=== PATIENT | male | born 1995 | race Caucasian/White ===

== ENCOUNTER 2018-06-04 13:18 | Emergency (ER) | payer OTHER ==
[2018-06-04 13:32] VITALS: BP 144/88
--- NOTE | 2018-06-04 14:23 | EDPHY ---
General Time Seen by Provider: 06/04/18 14:21 Narrative: CLINICAL IMPRESSION: [ ] ASSESSMENT/PLAN: [ ] DIFFERENTIAL DX: [ ] ED PROCEDURES: [ See lab and/or imaging results below] [ ] ED COURSE: CHIEF COMPLAINT: [Fecal impaction ] HPI: [ ] PAST MEDICAL HISTORY: [ ] [See triage summary and nurse notes for addition applicable history ] Pertinent Past Surgical History: [ ] Family History: [ ] Social History: [ ] REVIEW OF SYSTEMS: A full 10 point review of systems was negative except for those mentioned in HPI. PHYSICAL EXAM: General Appearance: [Alert, oriented, appropriate, cooperative, NAD, well hydrated, non-toxic appearing, VSS, no hypoxia.] HEENT: [TMs are clear bilaterally no perforation or FB, no injection, no evidence of serous or mucopurulent otitis. Oropharynx clear is no erythema or exudates, no tonsillar hypertrophy or asymmetry. Dentition without abnormality. ] Eyes: [PERRLA, no acute vision change, nystagmus, swelling, discharge, pain or photosensitivity. Conjunctiva pink, no pallor or injection] Neck: [Supple, nontender, no lymphadenopathy, no midline pain, FROM, no meningismus.] Respiratory: [There are no retractions, lungs are clear to auscultation.] Cardiac: [Regular rate and rhythm, no murmurs or gallops.] Gastrointestinal: [Abdomen is soft, nontender, bowel sounds normal, no masses/ hernia, no rigidity, guarding or focal peritoneal findings.] Skin: [Warm, dry, no rashes, no nodules on palpation.] MEDICAL DECISION MAKING: Patient was seen independently. Secondary supervising physician at time of evaluation was: [ Dr. Luis]. Diagnosis: [ ]. New, requires workup Summary: [See Assessment and Plan for summary of ED visit ] Clinical lab tests: [ ordered / reviewed]. Independent visualization of images, tracing, or specimens: [ Yes / No]. Decision to obtain medical records or history from someone other than the patient: [ ] Review / Summarize previous medical records: [ ] Discussed patient with another provider: [ ] Patient Progress: [ ]. - History Smoking Status: Never smoked - Objective Vital Signs: Initial Vital Signs Temperature (C) 36.7 C 06/04/18 13:29 Heart Rate 80 06/04/18 13:29 Respiratory Rate 16 06/04/18 13:29 Blood Pressure 144/88 H 06/04/18 13:29 O2 Sat (%) 99 06/04/18 13:29 O2 Delivery Mode Room Air Allergies/Adverse Reactions: ibuprofen Allergy (Verified 06/04/18 13:33) Home Medications: Medication Instructions Recorded NK [No Known Home Meds] 06/04/18 Departure - Departure Condition: Good Referrals: NONE *PRIMARY CARE P,. [Primary Care Provider] - As per Instructions
--- NOTE | 2018-06-04 14:39 | EDPHY ---
H & P Time Seen by Provider: 06/04/18 14:21 HPI/ROS: CHIEF COMPLAINT: I think I am constipated HISTORY OF PRESENT ILLNESS: Patient had no bowel movement on Friday and Friday and then took prune juice and had bowel movement on Friday yesterday and today. He says those were more like diarrhea, no blood or mucus. Presents today worried about his constipation, says he has little bit of epigastric discomfort. No previous surgery, no vomiting, not distended. Abdominal discomfort today is very mild. Not better or worse with oral intake REVIEW OF SYSTEMS: Eye: no change in vision ENT: no sore throat Cardiac: no chest pain or syncope Pulmonary: no cough or SOB Abdomen: HPI Musculoskeletal: no back pain Skin: no rash Neuro: no headache Constitutional: no fever : no urinary symptoms A comprehensive 10 point review of systems is otherwise negative aside from elements mentioned in the history of present illness. PAST MEDICAL HISTORY: Negative, no previous surgery Social history: Just recently moved from [place] to attend [facility] General Appearance: Alert and conversant, cooperative. Eyes: No scleral icterus. ENT, Mouth: Normal mucous membranes. Respiratory: Normal respiratory effort, breath sounds equal, lungs are clear to auscultation. Cardiovascular: Regular rate and rhythm. Gastrointestinal: Abdomen is soft and non tender. Negative for rebound or guarding, no McBurney's point tenderness, rectal exam shows no stool in the vault, otherwise normal tone, no masses palpated. Negative for Huerta sign. Not distended, and has normal bowel sounds. Neurological: Alert, face symmetric, normal motor and sensory in extremities. Skin: Warm and dry, no rashes. Musculoskeletal: No peripheral edema. Psychiatric: Not agitated. Emergency Department course/MDM: Patient has a normal physical examination. Likely has a little bit of cramping from his relieved constipation. I think that bowel obstruction or acute surgical abdominal process such as cholecystitis or appendicitis is unlikely. I do not think he has a GI bleed. Patient is reassured and given primary care referral, he states he is comfortable going home with increasing oral fluids and fiber which I think is reasonable. Smoking Status: Never smoked Constitutional: Initial Vital Signs Temperature (C) 36.7 C 06/04/18 13:29 Heart Rate 80 06/04/18 13:29 Respiratory Rate 16 06/04/18 13:29 Blood Pressure 144/88 H 06/04/18 13:29 O2 Sat (%) 99 06/04/18 13:29 O2 Delivery Mode Room Air Allergies/Adverse Reactions: ibuprofen Allergy (Verified 06/04/18 13:33) Home Medications: Medication Instructions Recorded NK [No Known Home Meds] 06/04/18 MDM/Departure - Depart Disposition: Home, Routine, Self-Care Clinical Impression: Constipation Qualifiers: Constipation type: unspecified constipation type Qualified Code(s): K59.00 - Constipation, unspecified Condition: Good Instructions: Constipation (ED) Referrals: Abhijeet Herrera MD [[facility] [place] Primary Care Provider] - As per Instructions
== END 2018-06-04 14:51 | disposition home or self-care (01) ==
DX: K59.00 Constipation, unspecified (principal)